=== PATIENT | female | born 1985 | race Caucasian/White ===

== ENCOUNTER 2019-07-14 14:29 | Outpatient (CLI) | payer OTHER, SELFPAY | END 2019-07-14 14:30 | disposition home or self-care (01) | PROVIDERS: PCP Family Medicine; Visit Provider Nurse Practitioner Family | DX: E53.8 Deficiency of other specified B group vitamins (principal); E55.9 Vitamin D deficiency, unspecified | CPT/HCPCS: 36415; 82306; 82607 ==

== ENCOUNTER 2020-06-01 09:29 | Outpatient (CLI) | payer BC, SELFPAY ==
[2020-06-01 10:02] LABS: Hematocrit 41.8 % (37.0-47.0); Hemoglobin 13.7 g/dL (12.0-15.0); Immature Reticulocyte Fraction 8.8 % (3.0-15.9); Mean Corpuscular HGB Conc 32.8 g/dl (32-36); Mean Corpuscular Hemoglobin 31.9 pg (26-34); Mean Corpuscular Volume 97.2 fl (80-100); Mean Platelet Volume 10.6 fl (7.4-10.4); Platelet Count Result 213 k/mm3 (150-375); Red Cell Distribution Width 12.6 % (11.5-14.5); Reticulocyte Hemoglobin Conten 36.4 pg (28.2-35.7); Reticulocyte Percent 1.25 % (0.7-4.3); Reticulocytes Absolute 0.05 B/L (32.2-175.7); White Blood Count 6.3 K/mm3 (4.5-10.0)
[2020-06-01 10:41] LABS: Transferrin 323 mg/dL (206-381)
[2020-06-01 11:02] LABS: Eosinophils Absolute Manual 0.06 K/mm3 (0.02-0.5); Eosinophils Percent Manual 1 % (0-4); Lymphocytes Absolute Manual 1.51 K/mm3 (1.1-4.5); Monocytes Absolute Manual 0.06 K/mm3 (0.1-0.90); Monocytes Percent Manual 1 % (3-9); Neutrophils Percent Manual 74 % (46-73); Total Cells Counted 100
[2020-06-01 11:03] LABS: Ovalocytes 1+ (NORMAL); Platelet Estimate Adequate (Adequate); Stomatocytes 1+ (NORMAL)
[2020-06-01 11:04] LABS: Iron 170 ug/dL (37-170)
[2020-06-01 11:05] LABS: Total Triiodothyronine (T3) 1.55 NG/ML (0.97-1.69)
[2020-06-01 11:09] LABS: Vitamin D 25 Hydroxy 31.2 ng/mL
[2020-06-01 11:13] LABS: HIV 1/2 Ab P24 Ag Result Negative (Negative)
[2020-06-01 11:20] LABS: Alanine Aminotransferase 12 U/L (4-35); Albumin Level 4.4 g/dL (3.5-5.1); Alkaline Phosphatase 56 U/L (38-126); Anion Gap 6 mmol/L (8-16); Aspartate Amino Transferase 21 U/L (14-36); Bilirubin,Total 0.6 mg/dL (0.2-1.3); Blood Urea Nitrogen 8 mg/dL (7-17); Calcium 9.2 mg/dL (8.4-10.2); Carbon Dioxide 24 mmol/L (22-30); Chloride 108 mmol/L (98-107); Estimated Glomerular Filt Rate > 60; Free T4 Free Thyroxine 1.05 ng/mL (0.78-2.19); Glucose 95 mg/dL (65-105); Lactate Dehydrogenase 274 U/L (313-618); Percent Iron Saturation 42 % (20-50); Potassium 4.3 mmol/L (3.4-5.0); Sodium 138 mmol/L (137-145)
[2020-06-01 11:28] LABS: Hepatitis B Surface Antigen Negative (Negative)
[2020-06-01 11:37] LABS: HAV RESULT Negative (Negative); Hepatitis B Core IgM Result Negative (Negative)
[2020-06-01 11:46] LABS: Hepatitis C Virus Antibody Negative (Negative)
[2020-06-02 13:09] LABS: Rapid Plasma Reagin Non-Reactive (NonReactive)
== END 2020-06-01 09:30 | disposition home or self-care (01) ==
PROVIDERS: PCP Family Medicine; Visit Provider Nurse Practitioner Family
DX: E55.9 Vitamin D deficiency, unspecified (principal); E53.8 Deficiency of other specified B group vitamins; E78.2 Mixed hyperlipidemia; K58.2 Mixed irritable bowel syndrome; R53.83 Other fatigue; Z13.6 Encounter for screening for cardiovascular disorders; Z11.3 Encounter for screening for infections with a predominantly sexual mode of transmission
CPT/HCPCS: 36415; 80053; 80074; 82306; 82607; 82728; 82746; 83540; 83550; 83615; 84439; 84443; 84466; 84480; 85025; 85046; 86592; 86695; 86696; 86703; 87491; 87591; G0432

== ENCOUNTER 2020-06-10 07:17 | Outpatient (CLI) | payer BC, SELFPAY ==
[2020-06-10 07:53] LABS: Cholesterol 169 mg/dL (0-200); HDL Direct 56 mg/dL; Triglycerides 102 mg/dL (<150)
[2020-06-10 08:03] LABS: LDL Cholesterol Direct 99 mg/dL
== END 2020-06-10 07:18 | disposition home or self-care (01) ==
PROVIDERS: PCP Family Medicine; Visit Provider Nurse Practitioner Family
DX: Z13.220 Encounter for screening for lipoid disorders (principal)
CPT/HCPCS: 36415; 80061

== ENCOUNTER 2020-10-26 09:28 | Outpatient (CLI) | payer BC, SELFPAY ==
[2020-10-26 10:03] LABS: Hematocrit 40.3 % (37.0-47.0); Hemoglobin 13.2 g/dL (12.0-15.0); Immature Reticulocyte Fraction 3.4 % (3.0-15.9); Mean Corpuscular HGB Conc 32.8 g/dl (32-36); Mean Corpuscular Hemoglobin 31.3 pg (26-34); Mean Corpuscular Volume 95.5 fl (80-100); Mean Platelet Volume 10.8 fl (7.4-10.4); Platelet Count Result 218 k/mm3 (150-375); Red Blood Count 4.22 M/mm3 (4.2-5.4); Red Cell Distribution Width 12.9 % (11.5-14.5); Reticulocyte Hemoglobin Conten 35.9 pg (28.2-35.7); Reticulocyte Percent 0.89 % (0.7-4.3); Reticulocytes Absolute 0.04 B/L (32.2-175.7); White Blood Count 6.1 K/mm3 (4.5-10.0)
[2020-10-26 10:22] LABS: Lactate Dehydrogenase 263 U/L (313-618)
[2020-10-26 10:37] LABS: Free T4 Free Thyroxine 0.86 ng/mL (0.78-2.19); Vitamin D 25 Hydroxy 72.1 ng/mL
[2020-10-26 10:39] LABS: Transferrin 281 mg/dL (206-381)
[2020-10-26 10:54] LABS: Iron 236 ug/dL (37-170)
[2020-10-26 11:21] LABS: Percent Iron Saturation 61 % (20-50)
[2020-10-26 12:00] LABS: Total Triiodothyronine (T3) 0.99 NG/ML (0.97-1.69)
[2020-10-27 16:51] LABS: Folic Acid 6.9 ng/mL (2.76->20); Vitamin B12 > 1000.0 pg/mL (239-931)
[2020-10-29 11:29] LABS: DHEA-Sulfate 108 mcg/dL (23-266)
[2020-10-30 09:26] LABS: Testosterone Total 61 ng/dL (2-45)
[2020-10-31 07:00] LABS: FSH 9.8 mIU/mL (***); Progesterone 0.4 ng/mL (***); Prolactin 4.4 ng/mL (***)
[2020-11-01 02:23] LABS: Estradiol, Ultrasensitive 17 pg/mL
== END 2020-10-26 09:29 | disposition home or self-care (01) ==
PROVIDERS: PCP Family Medicine; Visit Provider Nurse Practitioner Family
DX: R51.9 Headache, unspecified (principal); R53.83 Other fatigue; E55.9 Vitamin D deficiency, unspecified; R79.9 Abnormal finding of blood chemistry, unspecified; R79.89 Other specified abnormal findings of blood chemistry
CPT/HCPCS: 36415; 82306; 82607; 82627; 82670; 82728; 82746; 83001; 83540; 83550; 83615; 84144; 84146; 84403; 84439; 84443; 84466; 84480; 85027; 85046

== ENCOUNTER 2022-02-23 09:53 | Outpatient (CLI) | payer BC, SELFPAY ==
--- NOTE | ~2022-02-23 | XR_ITS ---
XR hip LT min 2V DATE: 02/23/2022 10:20 INDICATION: Left hip pain TECHNIQUE: AP and lateral views of left and COMPARISON: None FINDINGS: No fracture or dislocation, avascular necrosis or bone destruction. The left hip joint spac e is well preserved. The pubic symphysis and left sacroiliac joint appear normal. IMPRESSION: Negative Reviewed, dictated and finalized at location [facility] IMPRESSION: Negative
== END 2022-02-23 09:54 | disposition home or self-care (01) ==
PROVIDERS: PCP Family Medicine; Visit Provider Nurse Practitioner Adult Health
DX: M25.552 Pain in left hip (principal); M76.12 Psoas tendinitis, left hip
CPT/HCPCS: 73502

== ENCOUNTER 2022-04-17 10:24 | Emergency (ER) | payer BC, SELFPAY ==
[2022-04-17 10:28] VITALS: BP 131/83; PULSE 100; RESP 14; TEMP 36.7; O2SAT 99
--- NOTE | 2022-04-17 10:36 | ED.GENADULT ---
HPI - General Adult General Chief complaint: Back Pain/Injury Stated complaint: Upper Back/Neck Pain Time Seen by Provider: 04/17/22 10:37 Source: patient, RN notes reviewed and old records reviewed Mode of arrival: ambulatory Limitations: no limitations History of Present Illness HPI narrative: 36-year-old female who presents to [facility] with complaints of upper back discomfort radiating to her shoulders and neck for the past 1 week duration. Patient states she has previous known problems with her upper back and neck after being in the [employer] for 12 years. Patient reports that she has known disability from [employer] for her upper back and neck. Patient reports that she went to chiropractor a week ago and someone else adjusted her and she has been having increased pain which she thinks is aggravating her migraines.patient reports that she had a massage this past Sunday which did nothing to improve her discomfort. MD complaint: upper back and neck pain Onset (ago): week(s) (1) Location: neck and back (thoracic) Severity scale (1-10): 5 Treatments prior to arrival: NSAID, cold therapy and heat therapy Related Data Home Medications Medication Instructions Recorded Confirmed cyanocobalamin (vitamin B-12) 1,000 mcg IM USEASDIRECTD 04/17/22 04/17/22 1,000 mcg/mL injection solution escitalopram oxalate 10 mg tablet 10 mg PO DAILY 04/17/22 04/17/22 norgestimate-ethinyl estradiol 1 tablet PO DAILY 04/17/22 04/17/22 0.18 mg/0.215mg/0.25mg-35 mcg(28)tablet (Tri-Sprintec (28)) Allergies Allergy/AdvReac Type Severity Reaction Status Date / Time No Known Allergies Allergy Verified 04/17/22 10:36 Review of Systems Review of Systems: CONSTITUTIONAL: Denies fever, chills, or sweats. EYES: Denies visual changes, redness, or discharge. ENT: Denies rhinorrhea, congestion, sore throat, or otalgia. CARDIOVASCULAR: Denies chest pain, palpitations, or edema. RESPIRATORY: Denies cough or dyspnea. GASTROINTESTINAL: Denies abdominal pain, nausea, vomiting, or diarrhea. GENITOURINARY: Denies dysuria or hematuria. SKIN: Denies rash or itching. MUSCULOSKELETAL: Reports upper back and neck discomfort,no other joint pain, or myalgia. NEUROLOGIC: Reports headache,no numbness, or weakness. PSYCHIATRIC: Positive for history of anxiety or depression. All systems reviewed & are unremarkable except as noted in HPI and below PMFSH Past Medical History Medical History (Updated 04/17/22 @ 14:01 by Raisa Bang NP) Anxiety and depression Hx of migraines Surgical History Surgical History (Updated 03/14/19 @ 22:44 by Nash Poole) No history of previous surgery Social History Social History (Updated 04/17/22 @ 13:52 by Raisa Bang NP) Smoking packs per day: 0.5 Smoking cigarettes per day: 10.0 Smoking status: Current every day smoker Comments At time of signature, agree with nursing past medical, surgical, social and family history. There is no relevant family history pertinent to the presenting complaint Exam Narrative: GENERAL: Well-appearing, well-nourished, and in no acute distress. HEAD: Normocephalic, atraumatic. EYES: PERRLA and EOMI. ENT: Nares clear, no rhinorrhea or epistaxis. Mucous membranes moist.TM's normal with good light reflex, throat pink with no lesions or exudates, no swelling noted. NECK: Supple. no lymphadenopathy CHEST: Clear to auscultation. No respiratory distress.SAO2 99% on room air HEART: Regular rate and rhythm. No murmur heard. Normal peripheral pulses. ABDOMEN: Soft, nontender, nondistended, normal active bowel sounds. EXTREMITIES: Normal range of motion. No edema.pain to upper thoracic region to shoulder and neck with full ROM of both upper extremities with no tingling or numbness.Patient reports that headache discomfort ranging 2/10 on pain scale and has taken her prescribed migraine med. SKIN: Warm, dry, no rash. NEURO: No focal deficits. Alert and oriented x3. Course Course Emergency
== END 2022-04-17 11:00 | disposition home or self-care (01) ==
PROVIDERS: Emergency Provider Registered Nurse
DX: M54.2 Cervicalgia (principal); M54.6 Pain in thoracic spine; F17.210 Nicotine dependence, cigarettes, uncomplicated; F41.9 Anxiety disorder, unspecified; F32.A Depression, unspecified
CPT/HCPCS: 99213; G0463

== ENCOUNTER 2023-11-13 08:00 | Emergency (ER) | payer BC, SELFPAY ==
--- NOTE | 2023-11-13 08:05 | ED.GENADULT ---
HPI - General Adult General Chief complaint: Abdominal Pain Stated complaint: stomach issues Source: patient, RN notes reviewed and old records reviewed Mode of arrival: ambulatory Limitations: no limitations History of Present Illness HPI narrative: 38 year old female who presents to [facility] care with complaints of 2 weeks of intermittent abdomen pain umbilical area pain upward epigastric region. Patient reports that she has felt nauseated with no vomiting but has had some diarrhea. Patient reports that she has had 5 episodes of diarrhea this morning and had to call off this morning.Patient has taken ome Pepto Bismol for her diarrhea and abdominal discomfort. Patient reports that she is trying to get did take home test the which was negative. MD complaint: abdomen Onset (ago): week(s) (2) Location: abdomen (umbilical region up to epigastric region) Severity scale (1-10): 4 Quality: aching and other (cramping) Pain Consistency: intermittent Treatments prior to arrival: other (Pepto Bismol) Related Data Home Medications Medication Instructions Recorded Confirmed cyanocobalamin (vitamin B-12) 1,000 mcg IM DAILY 04/17/22 11/13/23 1,000 mcg/mL injection solution meloxicam 15 mg tablet 15 mg PO DAILY 11/13/23 11/13/23 rizatriptan 10 mg disintegrating 10 mg translingual DAILY PRN 11/13/23 11/13/23 tablet Migraine Headache Allergies Allergy/AdvReac Type Severity Reaction Status Date / Time No Known Allergies Allergy Verified 11/13/23 08:20 Review of Systems Review of Systems: CONSTITUTIONAL: Denies fever, chills, or sweats. EYES: Denies visual changes, redness, or discharge. ENT: Denies rhinorrhea, congestion, sore throat, or otalgia. CARDIOVASCULAR: Denies chest pain, palpitations, or edema. RESPIRATORY: Denies cough or dyspnea. GASTROINTESTINAL: positive for mid abdominal pain around umbilical area upward epigastric with nausea, no vomiting, positive for diarrhea. GENITOURINARY: Denies dysuria or hematuria. SKIN: Denies rash or itching. MUSCULOSKELETAL: Reports chronic lower back pain, joint pain, or myalgia. NEUROLOGIC: Denies headache, numbness, or weakness. PSYCHIATRIC: Positive for history of anxiety or depression. All systems reviewed & are unremarkable except as noted in HPI and below [facility] Past Medical History Medical History Anxiety and depression Hx of migraines IBS (irritable bowel syndrome) Surgical History Surgical History No history of previous surgery Social History Social History Smoking packs per day: 0.5 Smoking cigarettes per day: 10.0 Smoking status: Current every day smoker Tobacco type: e-cigarettes/vaping Additional smoking assessment comments: use to smoke cigarettes now vapes Alcohol intake: never Substance use: never Living arrangements: with family Gender identity (if verbalized by the patient): Female Comments At time of signature, agree with nursing past medical, surgical, social and family history. There is no relevant family history pertinent to the presenting complaint Exam Narrative: GENERAL: Well-appearing, well-nourished, and in no acute distress. HEAD: Normocephalic, atraumatic. EYES: PERRLA and EOMI. ENT: Nares clear, no rhinorrhea or epistaxis. Mucous membranes moist. NECK: Supple.no lymphadenopathy CHEST: Clear to auscultation. No respiratory distress.SAO2 100% on room air HEART: Regular rate and rhythm. No murmur heard. Normal peripheral pulses. ABDOMEN: Soft, tender at umbilical area radiates to epigastric area, nondistended, normal active bowel sounds, no McBurney point tenderness SKIN: Warm, dry, no rash. NEURO: No focal deficits. Alert and oriented x3. Course Course Emergency Course: Patient is aware of diagnosis, understands and agrees to treatment radha
[2023-11-13 08:06] VITALS: BP 121/84; PULSE 75; RESP 20; TEMP 36.7; O2SAT 100
[2023-11-13 08:46] LABS: BEDSIDEPREGUCG Negative; EDUAAPPEAR Clear; EDUABILI 1+; EDUABLOOD Negative; EDUACOLOR1 Dark; EDUAGLUCOSE Negative; EDUAKETONE Trace; EDUALEUKO Negative; EDUANITRATE Negative; EDUAPROTEIN Trace; EDUAUROBILI 0.2
== END 2023-11-13 08:58 | disposition home or self-care (01) ==
PROVIDERS: Emergency Provider Registered Nurse
DX: B34.9 Viral infection, unspecified (principal); F17.290 Nicotine dependence, other tobacco product, uncomplicated
CPT/HCPCS: 81003; 81025; 99213; G0463